=== PATIENT | female | born 1975 | race Caucasian/White ===

== ENCOUNTER 2020-11-22 13:14 | Emergency (ER) | payer MEDICARE, MEDICAID, SELFPAY ==
[2020-11-22 13:15] VITALS: BP 146/95; PULSE 88; RESP 18; TEMP 36.2; O2SAT 99; BMI 25.7
[2020-11-22] MEDS: DiphenhydrAMINE 50 MG/ML Syringe 25 MG IV (14:13)
[2020-11-22] MEDS: 0.9% Normal Saline 1,000 ML 999 ML IV (14:14)
[2020-11-22] MEDS: Metoclopramide 10 MG/2 ML Vial IV (14:16)
[2020-11-22] MEDS: Ketorolac 30 MG/ML Syringe IV (14:16)
--- NOTE | 2020-11-22 14:45 | EDS_ITS ---
HPI History of Present Illness Chief Complaint: Headache Informant: patient Onset/Context/Timing Onset: Yesterday Context: Gradual Quality -Headache: Positive for Throbbing Current Severity: Moderate Maximum Severity: Severe Narrative Narrative: Patient present secondary to migraine headache. She is a history of migraines. This particular episode started yesterday with gradual onset. She states currently the pain is just lateral to her right eye. Last night it was a tight band across the top of her head. She does have light sensitivity, nausea, and vomiting. She denies recent head injury or URI symptoms. She is following with a neurologist at [facility]. [facility] Medical History HIV (human immunodeficiency virus infection) Migraine Home Medications buspirone 5 mg PO BID 11/22/20 [History Last Taken Unknown] naxeurhowy-tlthxrznxqyit-mjfq [Fioricet] 1 tab PO Q4H PRN 11/22/20 [History Last Taken Unknown] doxycycline hyclate 100 mg PO DAILY 11/22/20 [History Last Taken Unknown] pqhpjok-vhb-evrvk-tenof alafen [Genvoya] 1 tab PO DAILY 11/22/20 [History Last Taken Unknown] escitalopram oxalate 20 mg PO DAILY 11/22/20 [History Last Taken Unknown] lamotrigine [Lamictal] 25 mg PO BID 11/22/20 [History Last Taken Unknown] noreth-ethinyl estradiol-iron 1 tab PO DAILY 11/22/20 [History Last Taken Unknown] ondansetron 4 mg PO Q6H PRN 11/22/20 [History Last Taken Unknown] propranolol 40 mg PO DAILY 11/22/20 [History Last Taken Unknown] Allergy/AdvReac Type Severity Reaction Status Date / Time Penicillins Allergy Rash Verified 11/22/20 13:17 Social History Smoking Status: Never smoker ROS ROS ED Constitutional Constitutional ED: Denies chills or fever(s) Eyes Eyes: Denies change in vision ENT ENT ED: Denies sore throat Cardiovascular Cardiovascular: Denies chest pain Respiratory/Chest Respiratory/Chest: Denies cough or dyspnea Gastrointestinal Gastrointestinal: Reports nausea and vomiting; Denies abdominal pain or diarrhea Genitourinary Genitourinary ED: Denies dysuria Musculoskeletal Musculoskeletal: Denies back pain or neck pain Integumentary Denies rash Neurologic Neurologic: Reports headache(s); Denies paresthesias or weakness Psychiatric Psychiatric: Denies anxiety or depression Allergic/Immunologic Allergic/Immunologic ED: Denies urticaria EXAM Physical Exam Const Vital Signs: 11/22/20 13:15 Temperature 97.2 F L Temperature Source Temporal Pulse Rate 88 Respiratory Rate 18 Blood Pressure 146/95 H Blood Pressure Mean 112 Pulse Ox 99 Oxygen Delivery Method Room Air Positive well nourished and well developed General Appearance ED: well developed HEENT Reports normocephalic and head/scalp atraumatic Eyes PERRL and EOMs intact bilaterally Neck supple and no meningeal signs Chest Wall inspection of chest normal and palpation of chest normal Resp normal respiratory effort and clear to auscultation bilaterally Cardio regular rate and regular rhythm GI normal to inspection, nondistended, normoactive bowel sounds Palpation: soft Extremity normal to inspection Neuro oriented x3 and no sensory deficits noted Sensorium / Orientation: alert Motor Exam: strength 5/5 throughout Psych mental status grossly normal Skin no rashes or lesions noted MDM MDM MDM Narrative Medical decision making narrative: Patient was given Toradol, Reglan, Benadryl, IV fluids. Treatment and Re-Evaluation Comments:: On repeat evaluation patient reports significant improvement in her headache. She is comfortable with discharge to home at this time. Return instructions provided. Discharge Plan Triage Chief Complaint: Headache ED Provider: Julia Arriaga Dx/Rx/DC Orders Clinical Impression: Migraine Instructions: ED, Migraine (Classical) Prescriptions: No Action buspirone 5 mg Tablet 5 mg PO BID RF: 0 doxycycline hyclate 100 mg Capsule 100 mg PO DAILY RF: 0 vxtxsnlqac-lnfqsygqmcnfo-vuoy [Fioricet] 50-325-40 mg Tablet 1 tab PO Q4H PRN (Reason: Migraine Headache) RF: 0 lamotrigine [Lamictal] 25 mg Tablet 25 mg PO BID RF: 0 propranolol 40 mg Tablet 40 mg PO DAILY RF: 0 ondansetron 4 mg Tablet,Disintegrating 4 mg PO Q6H PRN (Reason: Nausea) RF: 0 escitalopram oxalate 20 mg Tablet 20 mg PO DAILY RF: 0 noreth-ethinyl estradiol-iron 0.4mg-35mcg(21) and 75 mg (7) Tablet,Chewable 1 tab PO DAILY RF: 0 Genvoya [id number] mg Tablet 1 tab PO DAILY RF: 0 Referrals: Daria NICHOLS [Other] - As Needed Disposition Disposition: Home, Self Care
[2020-11-22 15:16] VITALS: PULSE 60; RESP 14
== END 2020-11-22 15:17 | disposition home or self-care (01) ==
PROVIDERS: Emergency Provider Emergency Medicine
DX: G43.909 Migraine, unspecified, not intractable, without status migrainosus (principal); B20 Human immunodeficiency virus [HIV] disease; Z79.899 Other long term (current) drug therapy
CPT/HCPCS: 96361; 96374; 96375; 99283; J7030; A4216

== ENCOUNTER → 2023-10-10 | Outpatient (CLI) | payer MEDICARE, MEDICAID, SELFPAY ==
--- NOTE | 2023-10-10 14:50 | VDLE_ITS ---
Reason For Study: SWELLIG RIGHT LEFT GSV is normal. GSV is normal. CFV is compressible, spontaneous, phasic, CFV is compressible, spontaneous, phasic, competent and demonstrates normal competent, and demonstrates normal augmentation. augmentation. FV is compressible, spontaneous, phasic, FV is compressible, spontaneous, phasic, competent and demonstrates normal competent and demonstrates normal augmentation. augmentation. POP V is compressible, spontaneous, phasic, POP V is compressible, spontaneous, phasic, competent and demonstrates normal competent and demonstrates normal augmentation. augmentation. T/P Trunk is compressible. T/P Trunk is compressible. PTV is compressible. PTV is compressible. RT PerV is compressible. LT PerV is compressible. Procedure This is a venous duplex using B-mode, color flow and spectral Doppler. Exam performed in department. A preliminary report was called and/or faxed to GABRIELLA OCAMPO @[phone]. VL/Venous Duplex US - Serjio Extrem Interpretation Summary Deep veins of the bilateral lower extremities are patent and compressible segme ntally. There is no evidence of bilateral lower extremity deep vein thrombosis. The bilateral great saphenous veins appear patent and compressible segmentally. Ordering Physician: AUGUST OCAMPO Referring Physician: AUGUST OCAMPO Performed By: Eri Zarate, RDANA, RVT
== END | disposition home or self-care (01) ==
LOC: CVS 14:47
DX: M79.89 Other specified soft tissue disorders (principal); R79.89 Other specified abnormal findings of blood chemistry; M79.605 Pain in left leg
CPT/HCPCS: 93970